=== PATIENT | male | born 1975 | race Caucasian/White ===

== ENCOUNTER 2018-03-15 05:59 | Emergency (ER) | payer OTHER, SELFPAY ==
--- NOTE | 2018-03-15 06:02 | ED.SKABFB ---
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 Patient states that his left knee started hurting over the past 12-18 hours. He did state that he was moving quite a bit yesterday going up and down stairs. He states that he has had pain in his left knee like this in the past. He initially stated that he had ?cellulitis? in his knee. This was diagnosed in the emergency department in the past. He states that the stuck a needle in his knee and told him that it was ?cellulitis? he states that he was not admitted to the hospital at that time. He was not sure if he was sent home on antibiotics. He did not have surgery. He states that during that visit the symptoms got better on their own. Today he is not febrile. No trauma. Is scheduled for an MRI of his left foot later today. Related Data Previous Rx's Medication Instructions Recorded hydrocodone-acetaminophen [[place]] 1 tab PO Q6H PRN #6 tab 03/15/18 Allergies Allergy/AdvReac Type Severity Reaction Status Date / Time No Known Drug Allergies Allergy Verified 03/15/18 06:09 Review of Systems Constitutional Denies fever(s) Musculoskeletal Comments: Left knee pain Integumentary/Breasts Comments: Warmth of the left knee without any rashes Neurologic Comments: No numbness or tingling left lower extremity PFSH Medical History Hypertension (Acute) Surgical History No pertinent past surgical history (Acute) Social History Smoking Status: Former smoker Exam Const General: cooperative, healthy appearing, comfortable, well developed, well groomed and No acute distress Orientation: alert, awake and oriented x3 Resp Effort & Inspection: normal respiratory effort Skin Lesions: no lesions Rashes: no rashes Neuro Other: Sensation intact to light touch left knee Extrem Other: Left hip unremarkable Left thigh unremarkable Left knee tenderness to palpation over the anterior inferior portion of the knee over the patella tendon. No medial lateral joint line tenderness. No posterior knee tenderness. Left calf unremarkable Left foot unremarkable Psych Appearance: grossly normal and well kempt MDM - Skin/Abscess/Foreign Bdy MDM Narrative Medical decision making narrative: After further discussion with the patient regarding his prior ?cellulitis? in his knee it appears that the patient was diagnosed with a bursitis. He stated that at that time there was much more redness around his knee. He states that they did stick a needle in his knee. Today he is tender over the left patella tendon. It could be somewhat more warm compared to the right side however there is no skin changes. No redness. No blisters. I suspect that his tenderness is either a patella tendinitis and/or a bursitis. He has no signs of infection. He is afebrile. We discussed that he could use a knee brace as needed for any discomfort. Will send home with a prepack of pain medication. He does have anti-inflammatories at home. He was instructed that if his symptoms worsen or if he develops redness over his knee he does need to follow up with his clinical medical assistant for evaluation to see if he needs antibiotics. The patient expressed understanding and agreement with plan. Discharge Plan Departure Patient Disposition: Home Clinical Impression: Acute pain of left knee Instructions: DI for Bursitis, DI for Patellar Tendinopathy Activity Restrictions/Additional Instructions: Your knee pain today is likely either tendinitis or bursitis. I have a low suspicion for an infection currently. Recommend that you take anti-inflammatories such as Motrin/ibuprofen or Naprosyn at home. You can use a knee brace as needed. You can also ice your knee. If you develop fevers or the pain gets worse or you start having redness over the skin I would recommend you talk with your clinical medical assistant to evaluate effusion start some antibiotics. Return to the emergency department for any worsening symptoms. Prescriptions: New hydrocodone-acetaminophen [[place]] 5-325 mg tablet 1 tab PO Q6H PRN (Reason: pain) Qty: 6 RF: 0
[2018-03-15 06:05] VITALS: BP 141/101; PULSE 104; RESP 18; TEMP 36.4; O2SAT 98; BMI 27.1
[2018-03-15] MEDS: HYDROCODONE/ACET 5/325 PREPACK 1 BOTTLE MISC (06:23)
[2018-03-15 06:29] VITALS: BP 141/101; PULSE 104; RESP 18; TEMP 36.4; O2SAT 98; BMI 27.1
== END 2018-03-15 06:32 | disposition home or self-care (01) ==
PROVIDERS: Emergency Provider Emergency Medicine
DX: M25.562 Pain in left knee (principal)
CPT/HCPCS: 99282

== ENCOUNTER → 2018-03-15 06:48 | Outpatient (CLI) | payer OTHER, SELFPAY | PROVIDERS: Visit Provider Podiatrist | DX: M77.52 Other enthesopathy of left foot and ankle (principal); Z53.20 Procedure and treatment not carried out because of patient's decision for unspecified reasons ==